=== PATIENT | female | born 1950 | race Caucasian/White ===

== ENCOUNTER → 2019-05-28 | Outpatient (CLI) | payer OTHER ==
--- NOTE | 2019-05-28 16:02 | KCIC ---
MRI study of the right shoulder without contrast Clinical indications: Right shoulder pain over one year. Has become worse with repetitive use since December 2018. TECHNIQUE: Noncontrast MRI sequences of the right shoulder were performed in all 3 planes. FINDINGS: There is tendinosis of the supraspinatus tendon and infraspinatus tendon. There is a complete tear of the lateral aspect of the supraspinatus tendon attachment to the greater tubercle. This defect measures 17 mm in AP dimension and 12 mm in transverse dimension. Fluid is seen within the subacromial and subdeltoid bursa as a result of the complete tear. There is no retraction of the tendon. There is mild atrophy of the supraspinatus and infraspinatus muscles. The subscapularis tendon is intact. Bicipital groove is very shallow. The tendon of the long head of biceps is not identified within the bicipital groove or glenohumeral joint. Therefore, it is chronically torn and retracted or atrophic. 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 There is spurring of the inferior edge of the acromial process. A degenerative cyst of the inferior edge of the acromial process is seen. Type III acromial process is seen. These findings may impinge the acromial humeral space. There is chronic erosion of the lateral aspect of the humeral head secondary to chronic impingement. No marrow infiltrative process or fracture or bone contusion is seen otherwise. There is degenerative attenuation of the superior aspect of the glenoid labrum. Otherwise the glenoid labrum is intact and no paravertebral ganglion cyst or spinoglenoid notch ganglion cyst is seen. Small glenohumeral joint effusion is seen. No loose body is evident. IMPRESSION: Complete tear of the rotator cuff. Impingement of the acromial humeral space. Shallow bicipital groove. The tendon of long of the biceps is not visualized and therefore is chronically torn and retracted inferiorly or is atrophic. Degenerative attenuation of the superior aspect of the glenoid labrum. Electronically signed by: Lanre Pennington MD (05/28/2019 3:59 PM) [facility]
== END | disposition home or self-care (01) ==
LOC: KCIC 11:10
PROVIDERS: ATTEND Family Medicine
DX: M75.121 Complete rotator cuff tear or rupture of right shoulder, not specified as traumatic (principal); M19.011 Primary osteoarthritis, right shoulder; M75.81 Other shoulder lesions, right shoulder; M25.411 Effusion, right shoulder; M62.511 Muscle wasting and atrophy, not elsewhere classified, right shoulder; M25.811 Other specified joint disorders, right shoulder
CPT/HCPCS: 73221

== ENCOUNTER 2019-06-19 13:46 | Day surgery (SDC) | payer OTHER ==
[~2019-06-19] VITALS: Ht 165.1 cm; Wt 91.2 kg
[~2019-06-19 13:46] MED LIST: ASPI-630 PO; ATOR40TA PO; BIOT25006 PO; BUPIVACAINE-EPI 0.25%-1:200000 MPF 30 ML VIAL. INJ ONE; CA C1TAB67 PO; CHOL100014 PO; CLINDAMYCIN 900MG PREMIX 50 ML IV PRN; CYAN50002 PO; FERR-36 PO; HYDROmorphone 2 MG/ML VIAL IV PRN; IV RINGERS,LACTATED 1000ML 1,000 ML IV SCH; LEVO150T5 PO; ONDANSETRON PF 4 MG/2 ML VIAL. IV PRN; OXYC-325 PO; PANT40TA77 PO; PROM25TA10 PO; ZOLP10TA PO; fentaNYL PF VIAL 100 MCG/2 ML VIAL IV PRN
[2019-06-19] MEDS ORDERED: OXYC-325 PO (18:44)
[2019-06-19] MEDS ORDERED: oxyCODONE/APAP 5/325 1 TAB TABLET PO PRN ×2 (18:45→21:30)
[2019-06-19] MEDS ORDERED: PROPOFOL 20 ML IV ONE (19:07)
[2019-06-19] MEDS ORDERED: LIDOCAINE 2% PF 5 ML VIAL. ONE (19:07)
[2019-06-19] MEDS ORDERED: DEXAMETHASONE SOD PHOS 4 MG/ML VIAL ONE (19:07)
[2019-06-19] MEDS ORDERED: ONDANSETRON PF 4 MG/2 ML VIAL. ONE (19:07)
[2019-06-19] MEDS ORDERED: fentaNYL PF VIAL 100 MCG/2 ML VIAL ONE (19:07)
[2019-06-19] MEDS ORDERED: MIDAZOLAM HCL/PF 2 MG/2 ML VIAL. ONE (19:08)
[2019-06-19] MEDS ORDERED: GLYCOPYRROLATE 1 MG/5 ML VIAL. ONE (19:47)
[2019-06-19] MEDS ORDERED: KETOROLAC 30 MG/ML VIAL. ONE (19:49)
[2019-06-19] MEDS ORDERED: CLINDAMYCIN 900MG PREMIX 50 ML IV ONE (20:00)
[2019-06-19] MEDS ORDERED: SEVOFLURANE 61 TO 120 MINUTES. IH ONE (20:14)
[2019-06-19] MEDS ORDERED: PHENYLEPHRINE in 0.9% NACL PF 1 MG/10 ML SYRINGE. IV ONE (20:32)
--- NOTE | 2019-06-19 20:47 | PDOC4 ---
Operative Note Operative Note Date of Procedure: June 19, 2019 Preoperative diagnosis: Closed Colles'' fracture of right radius, initial encounter - S52.531A Postoperative diagnosis: Closed Colles'' fracture of right radius, initial encounter - S52.531A Procedure: Open treatment of distal radial extra-articular fracture, with internal fixation CPT 54662 Surgeon: Tomas Spangler MD. Asst.: TAURUS Rangel Anesthesia Type: General EBL: 25 mL Specimens: none Drains: none Complications: none Tourniquet time: 25 minutes Tourniquet pressure: 250 mm Hg Implants: GEMINUS Volar Distal Radius Plating System INDICATION FOR PROCEDURE: The patient is a 68 year-old who fell and had a displaced right distal radius fracture. I recommended open treatment with internal fixation. We talked about potential risks of surgery such as bleeding, infection, stiffness, need for hardware removal or other potential surgical or anesthetic complications. The patient stated understanding of the risks, benefits and alternatives. Written consent was obtained and she desired to proceed with surgery. PROCEDURE IN DETAIL: The patient was identified in the preoperative holding area. The correct right wrist was marked by me. The patient was taken to the operating room, where a general anesthetic was used. Preoperative antibiotics were given intravenously. A timeout procedure was performed. Tourniquet was used on the upper right arm. The limb was prepared in sterile fashion with Chl oraPrep, and sterile drapes were applied. An Esmarch bandage was used to exsanguinate the limb and the tourniquet was inflated. The volar approach of Eligio was used distally. Sharp dissection was used and Bovie electrocautery was used as needed for hemostasis. The flexor carpi radialis tendon was retracted ulnarly to protect the median nerve. The brachioradialis was retracted radially to protect the radial artery. My nutrition services assistant used small Hohmann retractors on the radial side of the distal fragment and ulnar side of the proximal fragment to help maintain reduction. A Weitlaner retractor was also placed. Subperiosteal dissection of the pronator quadratus was performed after an L incision was made and the muscle was reflected across the fracture site. The fracture was easily identified but markedly displaced, comminuted and unstable. Bone quality was so poor that K wires were removed manually. I performed a reduction first using a [place] elevator to disimpact the fragments, and using longitudinal traction, and volar to palmar compression, the fracture was able to be reduced as confirmed on the image intensifier. The reduction was stabilized with two K wires prior to plate application. The small image intensifier device was used to check the reduction, and I used the image intensifier throughout the case and interpreted all of the images myself. I then applied the volar plate, placed a single nonlocking screw in the oval hole, and again checked the position of the plate on the image intensifier. I adjusted the plate as needed for satisfactory alignment and fixation. K wires were placed through the plate distally for evaluation of the distal alignment. I placed a nonlocking screw distally to compress the plate to the bone. I placed additional locking screws distally and locking screws proximally and I confirmed the reduction with the image intensifier. Final locking screws were placed in the proximal portion of the plate, and into the shaft. After satisfactory reduction and satisfactory fixation with all the screws, final images were taken. Copious irrigation was used. The tourniquet was released and Bovie electrocautery was used for hemostasis. Bupivacaine 0.25% with epinephrine was injected. The incision was closed with 3-0 Vicryl in the subcutaneous tissues and 3-0 Prolene in the skin. My nutrition services assistant did the skin closure. Xeroform and a sterile dressing and a volar splint were applied. Needle and sponge counts were correct. There were no apparent complications. TOMAS SPANGLER MD Jun 19, 2019 20:47
[2019-06-19] MEDS: fentaNYL PF VIAL 100 MCG/2 ML VIAL IV PRN ×2 (20:55→21:13)
[2019-06-19] MEDS: PROCHLORPERAZINE 10 MG/2 ML VIAL. IV PRN ×2 (20:55→21:14)
[2019-06-19] MEDS: MORPHINE SULFATE 2 MG/ML VIAL. IV PRN ×2 (20:56→21:14)
[2019-06-19 22:07] VITALS: BP 125/65
== END 2019-06-19 22:45 | disposition home or self-care (01) ==
LOC: SURG 13:46
PROVIDERS: ATTEND Orthopaedic Surgery
DX: S52.531A Colles' fracture of right radius, initial encounter for closed fracture (principal); Z79.82 Long term (current) use of aspirin; Z79.890 Hormone replacement therapy; Z79.899 Other long term (current) drug therapy; W01.0XXA Fall on same level from slipping, tripping and stumbling without subsequent striking against object, initial encounter; Y93.89 Activity, other specified; Y92.238 Other place in hospital as the place of occurrence of the external cause; Y99.8 Other external cause status
CPT/HCPCS: 25607; A7015; C1713; J0780; J1100; J1885; J2001; J2250; J2270; J2370; J2405; J2704; J3010; J3490